=== PATIENT | female | born 1980 ===

== ENCOUNTER 2021-10-01 09:00 | Day surgery (SDC) | payer OTHER | END 2021-10-08 12:00 | disposition home or self-care (01) | LOC: MOI US 09:00 | DX: R92.2 Inconclusive mammogram (principal); R92.8 Other abnormal and inconclusive findings on diagnostic imaging of breast; N63.22 Unspecified lump in the left breast, upper inner quadrant; N63.25 Unspecified lump in the left breast, overlapping quadrants; D24.2 Benign neoplasm of left breast; N60.82 Other benign mammary dysplasias of left breast | CPT/HCPCS: 19083; 19084; 77065; 88305; 88341; 88342; A4648; G0279 ==